=== PATIENT | male | born 1940 | race Caucasian/White ===

== ENCOUNTER → 2016-03-09 | Outpatient (CLI) | payer MEDICARE ==
[2015-08-30 09:52] VITALS: BP 188/100
[~2016-03-09] MED LIST: AMLO5TAB2 PO; ASPI325T70 PO; ASPI81TA2 PO; ASPI81TA9 PO; ATROVENT HFA12.9 GM IH; CEFP200T PO; CLOP75TA PO; CRESTOR5 MG PO; DILT240C2 PO; DRON400T PO; FLEC100T PO; FLUT100D INH; FURO20TA3 PO; Hydrochlorothiazide PO; METO100T11 PO; METO25TA4 PO; PANT40TA5 PO; POTA20TA4 PO; PRED20TA PO; ROPI1TAB2 PO; SENN-6 PO; WARF1TAB7 PO; WARF2TAB PO; WARF3TAB7 PO; WARF4TAB7 PO; WARF5TAB PO; WARF6TAB PO; WARF7.5T PO; [UNRECOGNIZED DRUG - OTHER] PO; protandim
--- NOTE | 2016-03-09 10:48 | KCIC ---
PROCEDURE Two-view chest. HISTORY Cough x2 weeks. COMPARISON CT chest without contrast April 18, 2013. FINDINGS Left chest dual chamber ICD. Median sternotomy wires. The cardiomediastinal silhouette is normal. Mild atelectasis or scarring or infiltrate in the left lower lobe. Lungs are otherwise clear. No pleural effusion or pneumothorax. No acute bone abnormality. IMPRESSION Mild atelectasis or scarring or infiltrate in the left lower lobe. Electronically signed by: Sonu Martin MD (Mar 09, 2016 10:47:03)
== END | disposition home or self-care (01) ==
LOC: KCIC 10:24
PROVIDERS: ATTEND Internal Medicine
DX: R05 Cough (principal); J98.11 Atelectasis; R91.8 Other nonspecific abnormal finding of lung field
CPT/HCPCS: 71020

== ENCOUNTER → 2016-06-27 | Outpatient (CLI) | payer BC, MEDICARE ==
[2015-08-30 09:52] VITALS: BP 188/100
[~2016-06-27] MED LIST changes: +WARF-78 PO; -WARF5TAB PO; -WARF6TAB PO; +WARF6TAB49 PO; -WARF7.5T PO; +WARF7.5T48 PO
--- NOTE | 2016-06-27 14:50 | KCIC ---
PROCEDURE Two-view chest HISTORY Right lung base crackles. Cough. COMPARISON March 09, 2016. FINDINGS Cardiomediastinal silhouette is stable. Pacer/defibrillator is again identified. Small 1 cm nodular opacity overlying the right lung base, possibly a nipple shadow. No focal airspace consolidation. Mild markings in the left lung base unchanged from prior study, likely scarring or atelectasis. No evidence of pleural effusion. Mild air trapping compatible with emphysema. No evidence of pleural effusion. No evidence of pneumothorax. Acromioclavicular joint hypertrophic osteoarthritis. IMPRESSION 1. Small 1 cm nodule at the right lung base. This could represent a nipple shadow. Recommend follow-up chest x-ray with nipple marker. 2. No focal airspace consolidation. Electronically signed by: Douglas Farias MD (June 27, 2016 14:49:10)
== END | disposition home or self-care (01) ==
LOC: KCIC 14:04
PROVIDERS: ATTEND Internal Medicine
DX: R05 Cough (principal); R09.89 Other specified symptoms and signs involving the circulatory and respiratory systems
CPT/HCPCS: 71020

== ENCOUNTER → 2017-06-04 | Outpatient (CLI) | payer BC | END | disposition home or self-care (01) | LOC: KCIC DEXA 08:46 | DX: M85.88 Other specified disorders of bone density and structure, other site (principal); Z79.52 Long term (current) use of systemic steroids | CPT/HCPCS: 77080 ==

== ENCOUNTER 2018-10-09 07:10 | Emergency (ER) | payer BC ==
[~2018-10-09] VITALS: Ht 175.3 cm; Wt 81.6 kg
[~2018-10-09 07:10] MED LIST changes: +AMLO5TAB10 PO; -AMLO5TAB2 PO; +ASPI-612 PO; +ASPI-630 PO; -ASPI81TA2 PO; -ASPI81TA9 PO; +METO-247 PO; -METO100T11 PO; -PANT40TA5 PO; +PANT40TA77 PO; -SENN-6 PO; +SENN-82 PO; +WARF1TAB69 PO; -WARF1TAB7 PO; +WARF3TAB50 PO; -WARF3TAB7 PO; +WARF4TAB64 PO; -WARF4TAB7 PO
--- NOTE | 2018-10-09 07:56 | PHYS DOC ---
Past Medical History Past Medical History: A-Fib, CAD, Diverticulitis, Hypertension, CT, Other Additional Past Medical Histor: Factor 5; Restless leg syndrome; pacemaker defib Past Surgical History: Coronary Bypass Surgery, Knee Replacement, Other Additional Past Surgical Histo: hernia; back, right shoulder rotator cuff; pacemaker defib Alcohol Use: Occasionally Drug Use: None Adult General Chief Complaint Chief Complaint: CHEST PAIN HPI HPI Patient is a 78-year-old male, with a past history including coronary artery disease status post bypass and subsequent PCI, atrial fibrillation on warfarin, who presents to the emergency department for evaluation. The patient states that for the past 10 days or so, he has had some discomfort in his left shoulder/back area, worse with movement of his left arm. He states that this morning he developed 2 seconds of a sharp discomfort in his left upper chest, overlying his pacemaker generator site, and has had some mild residual soreness at that site since that time. He denies any exertional chest discomfort, shortness of breath, or diaphoresis. With his prior cardiac events, he did not have any chest pain, but did have shortness of breath and diaphoresis. All of the symptoms are reproduced with movement as well as palpation of the affected areas. There are no alleviating factors to his symptoms. He has not had any fevers or chills, numbness, or weakness, and denies any recent trauma or injuries. Patient states that his INR was 3.1 last week, so he skipped a dose of Coumadin, and has readjusted his dose for the past few days . Review of Systems Review of Systems Constitutional: Denies fever or chills [] Eyes: Denies change in visual acuity, redness, or eye pain [] HENT: Denies nasal congestion or sore throat [] Respiratory: Denies cough or shortness of breath [] Cardiovascular: No additional information not addressed in HPI [] GI: Denies abdominal pain, nausea, vomiting, bloody stools or diarrhea [] : Denies dysuria or hematuria [] Musculoskeletal: Denies back pain or joint pain , except as noted in the history of present illness[] Integument: Denies rash or skin lesions [] Neurologic: Denies headache, focal weakness or sensory changes [] Endocrine: Denies polyuria or polydipsia [] All other systems were reviewed and found to be within normal limits, except as documented in this note. Current Medications Current Medications Current Medications Medications (Trade) Dose Ordered Sig/Alex Start Time Stop Time Status Last Admin Dose Admin Aspirin (Children'S Aspirin) 162 mg 1X ONCE 10/09/18 08:15 10/09/18 08:16 DC 10/09/18 08:26 162 MG Morphine Sulfate (Morphine Sulfate) 4 mg PRN Q15MIN PRN 10/09/18 08:15 10/10/18 08:14 10/09/18 08:26 4 MG Allergies Allergies Allergies Coded Allergies Type Severity Reaction Last Updated Verified albuterol Allergy Severe 02/18/15 Yes ticagrelor Allergy Severe SHORTNESS OF AIR 02/18/15 Yes Sulfa (Sulfonamide Antibiotics) Allergy Intermediate 01/02/15 Yes atorvastatin Allergy Intermediate 01/02/15 Yes naproxen Allergy Intermediate 01/02/15 Yes pravastatin Allergy Intermediate 01/02/15 Yes quinapril Allergy Intermediate 01/02/15 Yes quinapril HCl Allergy Intermediate 01/02/15 Yes ramipril Allergy Intermediate 01/02/15 Yes sulindac Allergy Intermediate 01/02/15 Yes telmisartan Allergy Intermediate 01/02/15 Yes testosterone Allergy Intermediate 01/02/15 Yes Physical Exam Physical Exam PHYSICAL EXAM: CONSTITUTIONAL: Well developed, well nourished HEAD: normocephalic, atraumatic EENT: PERRL, EOMI. Conjunctivae normal color, sclerae non-icteric; moist mucous membranes. NECK: Supple, non-tender; no meningismus. LUNGS: Lungs CTA, breathing even and unlabored. Normal air movement. HEART: Regular rate and rhythm, no murmur CHEST: No deformity; pacemaker generator site is palpable, there is mild tenderness to palpation of the soft tissues in this region, without focal tenderness at the generator site. ABDOMEN: The abdomen is soft, and non-tender, no masses or bruits. EXTREM: Normal ROM; no deformity, no calf tenderness. Normal pulses palpable in all extremities. There is trace pedal edema. There is tenderness to palpation to the anterior aspect of the left upper chest wall, just inferior and medial to the shoulder joint, as well as the posterior soft tissues of the left shoulder, which reproduces the patient's pain. SKIN: No rash; no diaphoresis NEURO: Alert; normal speech and cognition; CN's grossly intact; strength grossly intact without focal deficit. BACK: No CVA TTP. Current Patient Data Vital Signs Vital Signs Date Time Temp Pulse Resp B/P (MAP) Pulse Ox O2 Delivery O2 Flow Rate FiO2 10/09/18 08:56 18 96 Room Air 10/09/18 07:19 98.5 60 148/68 (94) 98.5 Lab Values Laboratory Tests Test 10/09/18 07:42 White Blood Count 5.3 x10^3/uL (4.0-11.0) Red Blood Count 4.77 x10^6/uL (4.30-5.70) Hemoglobin 16.1 g/dL (13.0-17.5) Hematocrit 47.0 % (39.0-53.0) Mean Corpuscular Volume 99 fL (79-100) Mean Corpuscular Hemoglobin 34 pg (25-35) Mean Corpuscular Hemoglobin Concent 34 g/dL (31-37) Red Cell Distribution Width 14.1 % (11.5-14.5) Platelet Count 154 x10^3/uL (140-400) Neutrophils (%) (Auto) 60 % (31-73) Lymphocytes (%) (Auto) 23 % (24-48) L Monocytes (%) (Auto) 14 % (0-9) H Eosinophils (%) (Auto) 3 % (0-3) Basophils (%) (Auto) 1 % (0-3) Neutrophils # (Auto) 3.2 x10^3/uL (1.8-7.7) Lymphocytes # (Auto) 1.2 x10^3/uL (1.0-4.8) Monocytes # (Auto) 0.7 x10^3/uL (0.0-1.1) Eosinophils # (Auto) 0.1 x10^3/uL (0.0-0.7) Basophils # (Auto) 0.1 x10^3/uL (0.0-0.2) Prothrombin Time 18.3 SEC (11.7-14.0) H Prothrombin Time INR 1.6 (0.8-1.1) H Sodium Level 140 mmol/L (136-145) Potassium Level 3.6 mmol/L (3.5-5.1) Chloride Level 105 mmol/L (98-107) Carbon Dioxide Level 27 mmol/L (21-32) Anion Gap 8 (6-14) Blood Urea Nitrogen 19 mg/dL (8-26) Creatinine 0.8 mg/dL (0.7-1.3) Estimated GFR (Cockcroft-Gault) 94.0 BUN/Creatinine Ratio 24 (6-20) H Glucose Level 133 mg/dL (70-99) H Calcium Level 8.8 mg/dL (8.5-10.1) Magnesium Level 2.2 mg/dL (1.8-2.4) Total Bilirubin 0.9 mg/dL (0.2-1.0) Aspartate Amino Transferase (AST) 27 U/L (15-37) Alanine Aminotransferase (ALT) 22 U/L (16-63) Alkaline Phosphatase 73 U/L (46-116) Troponin I Quantitative 0.039 ng/mL (0.000-0.055) NA-Ihr-Z-Type Natriuretic Peptide 566 pg/mL (0-449) H Total Protein 6.9 g/dL (6.4-8.2) Albumin 3.0 g/dL (3.4-5.0) L Albumin/Globulin Ratio 0.8 (1.0-1.7) L Laboratory Tests 10/09/18 07:42 Laboratory Tests 10/09/18 07:42 EKG EKG Normal sinus rhythm at a rate of 73 bpm with frequent PVCs, left axis deviation, left bundle branch block pattern, there are no acute ischemic changes, the EKG does not appear significantly different compared to patient's prior EKG.,[] Radiology/Procedures Radiology/Procedures [PROCEDURE: PORTABLE CHEST 1V PORTABLE CHEST 1V History: Left chest pain. Comparison: June 27, 2016 Findings: Left-sided pacemaker, unchanged. Prior median sternotomy. Elevation of the right hemidiaphragm, unchanged. Left glenohumeral and acromioclavicular DJD. Small left pleural effusion. Left basilar opacity. Portable technique accentuates cardiac size. Faint opacity within the right mid lung measures 3.2 x 1.6 cm. low lung volumes. Impression: 1. Small left pleural effusion. 2. Left basilar opacity, may represent atelectasis or consolidation. 3. Faint right midlung opacity, may represent summation artifact although consolidation or mass is possible. Recommend PA and lateral views of the chest to further assess. ] PROCEDURE: CHEST PA & LATERAL CHEST PA LATERAL History: Abnormal chest x-ray. Left chest pain. Comparison: September. Findings: Faint right mid lung opacity on previous chest x-ray represents summation artifact. Patchy left basilar opacity, most likely subsegmental atelectasis. No pleural effusion. Stable left sided pacemaker. Prior median sternotomy. Right acromioclavicular DJD. Impression: 1. Patchy left basilar opacity, most likely subsegmental atelectasis, similar compared to 2017. No pleural effusion. 2. Previously seen faint right midlung opacity is not identified and represented summation artifact. Course & Med Decision Making Course & Med Decision Making Pertinent Labs and Imaging studies reviewed. (See chart for details) [] 9:50 AM: The patient's condition remains stable. He is feeling better at this time. I had an extensive discussion with the patient about the limitations of ER cardiac evaluation in definitively ruling out acute coronary syndrome. We discussed limitation of the ER evaluation and a singe ED troponin in r/o AMI, and the risks involved in missed diagnosis of acute coronary syndrome including or permanent debility. I recommended overnight observation for further formal cardiac evaluation to rule out acute coronary syndrome. After expressing understanding of the limitations of ER cardiac evaluation, as well as the risks of missed diagnosis, the patient declined further cardiac evaluation at this time. The patient was mentally competent, and given opportunity to ask questions about the diagnosis and recommended plan of care. I stressed the importance of outpatient follow-up, and returning to the emergency department for new or worsening symptoms, or if the patient is agreeable to undergo further cardiac evaluation. Patient states Tylenol is adequate for pain control at home for him. Dragon Disclaimer Dragon Disclaimer This electronic medical record was generated, in whole or in part, using a voice recognition dictation system. Departure Departure Impression: Primary Impression: Left shoulder pain Additional Impression: Atypical chest pain Disposition: HOME, SELF-CARE Condition: STABLE Referrals: DEBBIE KNOX MD (PCP) IRAIDA GUZMAN MD Patient Instructions: Chest Pain (Nonspecific), Chest Wall Pain, Shoulder Pain Problem Qualifiers CHARLES CATALAN MD Oct 09, 2018 07:56
[2018-10-09 08:00] LABS: BASO # 0.1 x10^3/uL (0.0-0.2); BASO % 1 % (0-3); EOS # 0.1 x10^3/uL (0.0-0.7); EOS % 3 % (0-3); HEMOGLOBIN 16.1 g/dL (13.0-17.5); LYMPH # 1.2 x10^3/uL (1.0-4.8); LYMPH % 23 % (24-48); MEAN CORPUSCULAR HEMOGLOBIN 34 pg (25-35); MEAN CORPUSCULAR HGB CONC 34 g/dL (31-37); MEAN CORPUSCULAR VOLUME 99 fL (79-100); MONO # 0.7 x10^3/uL (0.0-1.1); MONO % 14 % (0-9); NEUT # 3.2 x10^3/uL (1.8-7.7); NEUT % 60 % (31-73); PLATELET COUNT 154 x10^3/uL (140-400); RED BLOOD COUNT 4.77 x10^6/uL (4.30-5.70); RED CELL DISTRIBUTION WIDTH 14.1 % (11.5-14.5); WHITE BLOOD COUNT 5.3 x10^3/uL (4.0-11.0)
[2018-10-09 08:07] LABS: PROTHROMBIN TIME PATIENT 18.3 SEC (11.7-14.0)
[2018-10-09 08:09] LABS: CALCIUM 8.8 mg/dL (8.5-10.1); CREATININE 0.8 mg/dL (0.7-1.3); POTASSIUM 3.6 mmol/L (3.5-5.1)
--- NOTE | 2018-10-09 08:11 | RAD ---
PORTABLE CHEST 1V History: Left chest pain. Comparison: June 27, 2016 Findings: Left-sided pacemaker, unchanged. Prior median sternotomy. Elevation of the right hemidiaphragm, unchanged. Left glenohumeral and acromioclavicular DJD. Small left pleural effusion. Left basilar opacity. Portable technique accentuates cardiac size. Faint opacity within the right mid lung measures 3.2 x 1.6 cm. low lung volumes. Impression: 1. Small left pleural effusion. 2. Left basilar opacity, may represent atelectasis or consolidation. 3. Faint right midlung opacity, may represent summation artifact although consolidation or mass is possible. Recommend PA and lateral views of the chest to further assess. Electronically signed by: Fabiano Davis DO (10/09/2018 8:08 AM) [id number]
[2018-10-09 08:14] LABS: ALBUMIN/GLOBULIN RATIO 0.8 (1.0-1.7); MAGNESIUM 2.2 mg/dL (1.8-2.4); TOTAL BILIRUBIN 0.9 mg/dL (0.2-1.0); TOTAL PROTEIN 6.9 g/dL (6.4-8.2)
[2018-10-09] MEDS ORDERED: MORPHINE SULFATE 4 MG/ML VIAL. IV/SQ PRN (08:15)
[2018-10-09] MEDS ORDERED: ASPIRIN CHEWABLE 81 MG TABLET. PO ONE (08:15)
--- NOTE | 2018-10-09 09:39 | RAD ---
CHEST PA LATERAL History: Abnormal chest x-ray. Left chest pain. Comparison: September. Findings: Faint right mid lung opacity on previous chest x-ray represents summation artifact. Patchy left basilar opacity, most likely subsegmental atelectasis. No pleural effusion. Stable left sided pacemaker. Prior median sternotomy. Right acromioclavicular DJD. Impression: 1. Patchy left basilar opacity, most likely subsegmental atelectasis, similar compared to 2017. No pleural effusion. 2. Previously seen faint right midlung opacity is not identified and represented summation artifact. Electronically signed by: Fabiano Davis DO (10/09/2018 9:37 AM) [id number]
[2018-10-09 10:00] VITALS: BP 138/77
--- NOTE | 2018-10-09 13:38 | EKG ---
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
== END 2018-10-09 10:20 | disposition home or self-care (01) ==
LOC: ER 07:10
DX: M25.512 Pain in left shoulder (principal); R07.89 Other chest pain; I48.91 Unspecified atrial fibrillation; I25.10 Atherosclerotic heart disease of native coronary artery without angina pectoris; I25.2 Old myocardial infarction; I10 Essential (primary) hypertension; Z95.5 Presence of coronary angioplasty implant and graft; Z96.659 Presence of unspecified artificial knee joint; Z95.0 Presence of cardiac pacemaker; Z79.82 Long term (current) use of aspirin; Z88.2 Allergy status to sulfonamides; Z88.1 Allergy status to other antibiotic agents; Z88.8 Allergy status to other drugs, medicaments and biological substances
CPT/HCPCS: 36415; 71045; 71046; 80053; 83735; 83880; 84484; 85025; 85610; 93005; 96374; 99285; J2270

== ENCOUNTER → 2019-04-18 | Outpatient (CLI) | payer BC ==
[~2019-04-18] MED LIST changes: -ROPI1TAB2 PO; +ROPI1TAB4 PO
--- NOTE | 2019-04-21 11:29 | RESP ---
DATE OF SERVICE: 04/18/2019 The patient underwent full pulmonary function testing on 04/18/2019, FEV1 to FVC ratio was 63%, FEV1 was 1.64 liters, FVC was 2.58 liters. The total lung capacity was elevated. Residual volume was elevated. Diffusion capacity was increased. IMPRESSION: 1. Moderate to severe airflow limitation. 2. Elevated diffusion capacity. LA ANGELO MD DR: ONEL/ganga JOB#: [id number] / [id number]
== END ==
LOC: PF 09:54
PROVIDERS: ATTEND Nurse Practitioner
DX: I48.11 Longstanding persistent atrial fibrillation (principal)
CPT/HCPCS: 94010; 94726; 94729

== ENCOUNTER 2019-10-10 15:01 | Inpatient (IN) | payer BC ==
[~2019-10-10] VITALS: Ht 177.8 cm; Wt 138.3 kg
[~2019-10-10 15:01] MED LIST changes: -ASPI-612 PO; +ASPI-886 PO; -WARF-78 PO; +WARF5TAB2 PO
[2019-10-10 16:22] VITALS: BP 131/68
[2019-10-10] MEDS ORDERED: ACETAMINOPHEN 325 MG TABLET. PO PRN (17:15)
[2019-10-10 19:00] VITALS: BP 134/78
[2019-10-10 20:23] LABS: BASO # 0.1 x10^3/uL (0.0-0.2); BASO % 1 % (0-3); EOS # 0.1 x10^3/uL (0.0-0.7); EOS % 1 % (0-3); HEMATOCRIT 43.7 % (39.0-53.0); HEMOGLOBIN 14.8 g/dL (13.0-17.5); LYMPH # 1.3 x10^3/uL (1.0-4.8); LYMPH % 18 % (24-48); MEAN CORPUSCULAR HEMOGLOBIN 34 pg (25-35); MEAN CORPUSCULAR HGB CONC 34 g/dL (31-37); MEAN CORPUSCULAR VOLUME 101 fL (79-100); MONO # 1.4 x10^3/uL (0.0-1.1); MONO % 19 % (0-9); NEUT # 4.5 x10^3/uL (1.8-7.7); NEUT % 62 % (31-73); PLATELET COUNT 125 x10^3/uL (140-400); RED BLOOD COUNT 4.34 x10^6/uL (4.30-5.70); RED CELL DISTRIBUTION WIDTH 15.1 % (11.5-14.5); WHITE BLOOD COUNT 7.2 x10^3/uL (4.0-11.0)
[2019-10-10 20:28] LABS: PROTHROMBIN TIME PATIENT 20.1 SEC (11.7-14.0)
[2019-10-10 20:38] LABS: % LYMPHS 17 % (24-48); % MONOS 13 % (0-10); % SEGS 70 % (35-66)
[2019-10-10 20:39] LABS: PLT ESTIMATE DECREASED (ADEQUATE)
[2019-10-10 20:54] LABS: ALBUMIN 2.7 g/dL (3.4-5.0); ALBUMIN/GLOBULIN RATIO 0.7 (1.0-1.7); CALCIUM 8.6 mg/dL (8.5-10.1); GFR 72.5; TOTAL BILIRUBIN 0.6 mg/dL (0.2-1.0); TOTAL PROTEIN 6.7 g/dL (6.4-8.2)
[2019-10-10] MEDS ORDERED: WARFARIN 5 MG TABLET. PO ONE (21:00)
[2019-10-10] MEDS ORDERED: FURO40TA4 PO (21:49)
[2019-10-10] MEDS ORDERED: CHOL500050 PO (21:49)
[2019-10-10] MEDS ORDERED: FEXO180T81 PO (21:49)
[2019-10-10] MEDS ORDERED: POTA20TA4 PO (21:49)
[2019-10-10] MEDS ORDERED: WARF4TAB64 PO (21:49)
[2019-10-10] MEDS: rOPINIRole 1 MG TABLET. PO SCH (21:56)
[2019-10-10] MEDS: ceFAZolin SODIUM IV Push 1 GM VIAL. IVP SCH (21:56)
[2019-10-10] MEDS: CARVEDILOL 6.25 MG TABLET. PO SCH (21:56)
--- NOTE | 2019-10-10 22:28 | EKG ---
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
[2019-10-10] MEDS ORDERED: SENN8.6T11 PO (22:45)
[2019-10-10] MEDS ORDERED: CARV6.2511 PO (22:45)
[2019-10-10] MEDS ORDERED: PANT40TA77 PO (22:45)
[2019-10-10] MEDS ORDERED: AMIO400T5 PO (22:45)
[2019-10-10 23:00] VITALS: BP 138/75
[2019-10-11 03:00] VITALS: BP 130/78
[2019-10-11 05:16] LABS: PROTHROMBIN TIME PATIENT 19.4 SEC (11.7-14.0)
[2019-10-11 05:33] LABS: CALCIUM 8.6 mg/dL (8.5-10.1); CREATININE 1.1 mg/dL (0.7-1.3); GFR 64.9; POTASSIUM 3.9 mmol/L (3.5-5.1)
[2019-10-11] MEDS: ceFAZolin SODIUM IV Push 1 GM VIAL. IVP SCH (06:25)
[2019-10-11 07:00] VITALS: BP 141/93
--- NOTE | 2019-10-11 07:08 | RAD ---
EXAM: Right lower extremity venous Doppler. HISTORY: Right lower extremity pain/swelling. COMPARISON: None. FINDINGS: Grayscale and Doppler analysis of the right lower extremity deep venous system was performed with graded compression and augmentation. The common femoral, greater saphenous, superficial femoral, popliteal and calf veins were assessed. There is no evidence of deep venous thrombosis. Subcutaneous edema is noted. The right peroneal veins were not well visualized secondary to edema. IMPRESSION: 1. No evidence of deep venous thrombosis. Electronically signed by: Hayley Castanon MD (10/11/2019 7:05 AM) [id number]
--- NOTE | 2019-10-11 07:56 | PDOC ---
Infectious Disease Note Vital Sign Vital Signs Vital Signs Date Time Temp Pulse Resp B/P (MAP) Pulse Ox O2 Delivery O2 Flow Rate FiO2 10/11/19 03:00 98.4 68 22 130/78 (95) 94 Room Air 98.4 Labs Lab Laboratory Tests Test 10/10/19 20:00 10/11/19 04:20 White Blood Count 7.2 x10^3/uL (4.0-11.0) Red Blood Count 4.34 x10^6/uL (4.30-5.70) Hemoglobin 14.8 g/dL (13.0-17.5) Hematocrit 43.7 % (39.0-53.0) Mean Corpuscular Volume 101 fL (79-100) Mean Corpuscular Hemoglobin 34 pg (25-35) Mean Corpuscular Hemoglobin Concent 34 g/dL (31-37) Red Cell Distribution Width 15.1 % (11.5-14.5) Platelet Count 125 x10^3/uL (140-400) Neutrophils (%) (Auto) 62 % (31-73) Lymphocytes (%) (Auto) 18 % (24-48) Monocytes (%) (Auto) 19 % (0-9) Eosinophils (%) (Auto) 1 % (0-3) Basophils (%) (Auto) 1 % (0-3) Neutrophils # (Auto) 4.5 x10^3/uL (1.8-7.7) Lymphocytes # (Auto) 1.3 x10^3/uL (1.0-4.8) Monocytes # (Auto) 1.4 x10^3/uL (0.0-1.1) Eosinophils # (Auto) 0.1 x10^3/uL (0.0-0.7) Basophils # (Auto) 0.1 x10^3/uL (0.0-0.2) Segmented Neutrophils % 70 % (35-66) Lymphocytes % 17 % (24-48) Monocytes % 13 % (0-10) Platelet Estimate Decreased (ADEQUATE) Prothrombin Time 20.1 SEC (11.7-14.0) 19.4 SEC (11.7-14.0) Prothromb Time International Ratio 1.7 (0.8-1.1) 1.7 (0.8-1.1) Sodium Level 138 mmol/L (136-145) 138 mmol/L (136-145) Potassium Level 4.0 mmol/L (3.5-5.1) 3.9 mmol/L (3.5-5.1) Chloride Level 105 mmol/L (98-107) 104 mmol/L (98-107) Carbon Dioxide Level 27 mmol/L (21-32) 24 mmol/L (21-32) Anion Gap 6 (6-14) 10 (6-14) Blood Urea Nitrogen 19 mg/dL (8-26) 19 mg/dL (8-26) Creatinine 1.0 mg/dL (0.7-1.3) 1.1 mg/dL (0.7-1.3) Estimated GFR (Cockcroft-Gault) 72.5 64.9 BUN/Creatinine Ratio 19 (6-20) Glucose Level 116 mg/dL (70-99) 141 mg/dL (70-99) Calcium Level 8.6 mg/dL (8.5-10.1) 8.6 mg/dL (8.5-10.1) Magnesium Level 2.0 mg/dL (1.8-2.4) Total Bilirubin 0.6 mg/dL (0.2-1.0) Aspartate Amino Transf (AST/SGOT) 24 U/L (15-37) Alanine Aminotransferase (ALT/SGPT) 24 U/L (16-63) Alkaline Phosphatase 58 U/L (46-116) Total Protein 6.7 g/dL (6.4-8.2) Albumin 2.7 g/dL (3.4-5.0) Albumin/Globulin Ratio 0.7 (1.0-1.7) Objective Assessment Cellulitits RLE - from scratch on metal bracket - states up to date on tetanus Sulfa allergy Afib Lymphedema Cat expsoures Plan Plan of Care Change to Cefepime and po Zyvox F/u labs and cults Elevation Thank you # [id number] KRISTEN ANGULO MD Oct 11, 2019 07:56
[2019-10-11] MEDS ORDERED: FUROSEMIDE 40 MG/4 ML VIAL. IVP SCH (09:00)
[2019-10-11] MEDS: ASPIRIN CHEWABLE 81 MG TABLET. PO SCH (09:06)
[2019-10-11] MEDS: CARVEDILOL 6.25 MG TABLET. PO SCH ×2 (09:07→17:16)
[2019-10-11] MEDS: LINEZOLID 600 MG TABLET PO SCH ×2 (09:07→21:10)
[2019-10-11] MEDS: AMIODARONE HCL 200 MG TABLET. PO SCH (09:07)
[2019-10-11] MEDS: CEFEPIME HCL IV Push 1 GM VIAL. IVP SCH ×3 (09:08→21:10)
--- NOTE | 2019-10-11 09:51 | RAD ---
CHEST PA LATERAL INDICATION: assess lung,cardiac. soa COMPARISON STUDY: 10/09/2018. FINDINGS: Life Support Devices: Left pectoral ICD/pacemaker. Lungs: Normal lung volume. Stable left basilar opacities. No new consolidation. Normal pulmonary vasculature. Pleura: No pleural effusion or pneumothorax. Heart and Mediastinum: Stable cardiomediastinal silhouette and great vessels. IMPRESSION: Stable left basilar opacities. No new consolidation. Electronically signed by: Jeremias Wong MD (10/11/2019 9:48 AM) [id number]
[2019-10-11 11:00] VITALS: BP 106/70
--- NOTE | 2019-10-11 12:10 | PDOC ---
Provider Note Provider Note history and physical dictated # [id number] Justicifation of Admission Dx: Justifications for Admission: Justification of Admission Dx: Yes Cellulitis: Cellulitis DEBBIE KNOX MD Oct 11, 2019 12:10
--- NOTE | 2019-10-11 12:45 | HP ---
ADMIT DATE: 10/10/2019 LOCATION: He is in room #502. HISTORY OF PRESENT ILLNESS: The patient is a 79-year-old white male who has a history of paroxysmal atrial fibrillation, on Coumadin and also has factor V Leiden mutation with history of coronary artery disease and hypertension, was admitted to [facility] from my office on 10/10/2019 with cellulitis in the right leg. The patient was moving on his wheelchair (scraped his right pretibial area) following day developed some redness and then he developed also fever and chills. He was seen in the office and had 2+ edema in his right leg with extensive cellulitis of the right pretibial area and he does have a previous history of a right total knee arthroplasty. He was therefore admitted for hospitalization for IV antibiotics and IV diuretics. ALLERGIES AND INTOLERANCES: INCLUDE SULFA, ALBUTEROL, ATORVASTATIN, NAPROXEN, PRAVASTATIN, QUINAPRIL, RAMIPRIL, SULINDAC, TELMISARTAN TESTOSTERONE, AND TICAGRELOR. MEDICATIONS: Prior to admission include: He is on furosemide 40 mg p.o. daily, amiodarone 400 mg every day, aspirin 81 mg every day, carvedilol 6.25 mg b.i.d., potassium chloride 20 mEq every day, Requip 2 mg at bedtime, and Coumadin 4.5 mg every day. PAST MEDICAL HISTORY: Significant for obstructive sleep apnea, periodic limb movement disorder, paroxysmal atrial fibrillation, coronary artery disease, factor V Leiden mutation. Hypertension, osteoarthritis, hyperlipidemia, frequent. He has had premature ventricular contractions and ventricular trigeminy. Chronic diastolic congestive heart failure. Benign prostatic hypertrophy. He had a deep vein thrombosis in 2003, had a coronary angioplasty and stent x 2 to the LAD artery in 2013, coronary artery bypass graft surgery in 2011, lumbar laminectomy in 2010, right rotator cuff repair in 2009, right total knee arthroplasty in 2008, benign colon polypectomy in 2008, left inguinal hernia repair in 1998, right knee arthrotomy, cataract extraction, reflux esophagitis. He also had a coronary angioplasty and stent in 2015. He has an AICD/pacemaker in 05/2015, had a radiofrequency ablation for premature ventricular contractions in 05/2016. SOCIAL HISTORY: He does not drink alcohol nor does he smoke cigarettes. 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 FAMILY HISTORY: Noncontributory. REVIEW OF SYSTEMS: GENERAL: He has had fever and chills. CARDIOVASCULAR: No chest pain. PULMONARY: No cough or shortness of breath. GASTROINTESTINAL: No diarrhea. ENDOCRINE: No diabetes mellitus. SKIN: He has got a cellulitis in right leg and the rest of the systems reviewed are negative except as stated in history of present illness. PHYSICAL EXAMINATION: VITAL SIGNS: Temperature is 97.5 degrees, heart rate is 60, respiratory rate 16, blood pressure 141/93. HEENT: Gaze is conjugate. Mouth is symmetrical. NECK: There is no cervical lymphadenopathy or thyroid enlargement. HEART: Reveals an S1, S2. There is no S3 or murmur. LUNGS: Revealed bilateral rhonchi in the bases. ABDOMEN: Obese and soft, nontender. EXTREMITIES: Lower extremities got 2+ edema in the right leg, 1+ edema in the left leg. He has got erythema in the pretibial area of the leg from the ankle all the way up to little bit below the knee. He has got an abrasion in the pretibial area of the right side. NEUROLOGIC: Revealed no focal weakness of extremities or facial asymmetry. LABORATORY DATA: Review of his laboratory tests: White count 7.2, hemoglobin 14.8, platelet count 125,000. He had a 62 polys and 18 lymphocytes. INR is 1.7 yesterday and today, sodium 138, potassium 3.9, chloride 104, total CO2 of 24, BUN 19, creatinine 1.1, blood sugar was 116 last night and 141 this morning. Liver function tests were normal. Albumin was 2.7. He had a chest x-ray, which showed a stable left basilar opacity with no new consolidation. No pleural effusion or pneumothorax was seen. He had a venous Doppler of his right leg, which showed no evidence of a deep vein thrombosis. He had an EKG. Electrocardiogram showed looks like atrial fibrillation with premature ventricular contractions noted. ASSESSMENT: 1. Cellulitis, right leg. 2. Abrasion, right pretibial area. 3. Chronic venous insufficiency of the legs. 4. Paroxysmal atrial fibrillation, on Coumadin. 5. Factor V Leiden mutation, on Coumadin. 6. Coronary artery disease with previous angioplasties and stents. 7. Hypertension. 8. Obstructive sleep apnea. 9. History of a right total knee arthroplasty. PLAN: At this time is consult Dr. Sosa seen the patient. He was started on IV cefazolin and Dr. Sosa changed it to IV cefepime and also Zyvox. He was started on IV Lasix and he has had some urine output, actually I do not see any urine output recorded so that the nurses recorded. We will put him on some Bumex 1 mg IV and started on IV Lasix and see if that works better for his peripheral edema. We will increase his potassium chloride also. Actually, he is not getting any potassium chloride that I can see here, so will be ordering potassium chloride 20 mEq daily. We will also increase his Coumadin to 5 mg every day. DEBBIE KNOX MD DR: VEDA/ganga JOB#: [id number] / [id number]
[2019-10-11] MEDS: POTASSIUM CHLORIDE 20 MEQ TABLET.ER. PO SCH ×2 (14:06→21:10)
[2019-10-11] MEDS: BUMETANIDE 1 MG/4 ML VIAL. IV SCH (14:07)
[2019-10-11 15:00] VITALS: BP 133/92
[2019-10-11] MEDS: WARFARIN 5 MG TABLET. PO SCH (17:16)
[2019-10-11 19:00] VITALS: BP 140/86
[2019-10-11] MEDS: LACTOBACILLUS RHAMNOSUS GG 1 CAPSULE. PO SCH (21:10)
[2019-10-11] MEDS: rOPINIRole 1 MG TABLET. PO SCH (21:11)
--- NOTE | 2019-10-11 21:41 | CONS ---
DATE OF CONSULTATION: 10/11/2019 LOCATION: The patient's room is 502. REQUESTING PHYSICIAN: Dr. Palmer. REASON FOR CONSULTATION: Cellulitis. HISTORY OF PRESENT ILLNESS: The patient is a pleasant 79-year-old gentleman with a history of atrial fibrillation and lymphedema. He states this past Sunday he was adjusting his riding chair and scraped his right lower extremity at a bracket. He had very superficially washed it out with soap and water and put some antibiotic ointment on it. However in the next couple of days, it began to turn more red and developed some heat. He denies any fevers, but he did have some chills. No sweats. He denies any headache, sore throat, cough, nausea, vomiting, diarrhea, dysuria, frequency, or urgency and he presented to Dr. Palmer's office on the and was directly admitted and placed on cefazolin. Currently, he is sitting upright in bed and feeling somewhat better. Mother still remains red and swollen. PAST MEDICAL HISTORY: Positive for hypertension, hyperlipidemia, coronary artery disease, atrial fibrillation, factor V Leiden mutation, history of DVT, diverticulitis, hearing aids, and left upper extremity cellulitis. PAST SURGICAL HISTORY: Positive for coronary artery stents and right total knee arthroplasty. REVIEW OF SYSTEMS: Otherwise negative. ALLERGIES: LISTED SULFA, CANNOT REMEMBER WHAT HAPPENS WHEN HE TAKES IT, ATORVASTATIN, NAPROSYN, PRAVASTATIN, QUINAPRIL, RAMIPRIL, SULINDAC, TESTOSTERONE, AND TELMISARTAN ARE ALSO LISTED. REVIEW OF SYSTEMS: Otherwise negative. SOCIAL HISTORY: No tobacco, no alcohol. He is and retired. He has cats at home. FAMILY HISTORY: Noncontributory. CURRENT MEDICATIONS: Include cefazolin 1 g q.8 h., amiodarone, aspirin, Coreg, Lasix, Requip, and Coumadin. PHYSICAL EXAMINATION: VITAL SIGNS: He is afebrile, temperature 98.4, pulse 68, respirations 22, blood pressure 130/78, satting 94% on room air. CONSTITUTIONAL: He is very pleasant and cooperative. He is in no acute distress. HEENT: Pupils are equal and reactive. Normal conjunctivae. Oral cavity, pharynx clear. NECK: Supple. Good range of motion. LUNGS: Clear to auscultation bilaterally. HEART: S1 and S2. ABDOMEN: Morbidly obese, soft, no guarding or rebound. EXTREMITIES: Without clubbing or cyanosis. He has bilateral lymphedema changes, right greater than left. His right lower extremity has erythema from the upper tibial area down to the top of the ankle. He has a wound that is superficial on the anterior aspect, approximately 2-3 cm x 1 cm, it is clean, no purulence, has no erythema, tracked up to his groin. SKIN: Warm to touch. NEUROLOGIC: Nonfocal. PSYCHIATRIC: Affect is pleasant. LABORATORY DATA: White count is 17, hemoglobin of 14.8, platelets 125, neutrophils 62, lymphs were 18, creatinine today 1.1, glucose 141. He had normal liver function study tests. Ultrasound was negative for DVT. IMPRESSION: 1. Cellulitis, right lower extremity from the scratch of a metal bracket, he states he is up-to-date on his tetanus. 2. SULFA ALLERGY. 3. Atrial fibrillation. 4. Lymphedema. 5. Cat exposure. RECOMMENDATIONS: We will change to cefepime given the metal exposure. Add p.o. Zyvox. Discontinue the cefazolin. Follow up labs, cultures, and needs elevation. Thank you for asking us to participate in the patient's care. If you have any questions, please do not hesitate to contact me. KRISTEN ANGULO MD DR: LISSETTE/ganga JOB#: [id number] / [id number]
[2019-10-11 23:00] VITALS: BP 109/72
[2019-10-12 03:00] VITALS: BP 132/85
[2019-10-12] MEDS: CEFEPIME HCL IV Push 1 GM VIAL. IVP SCH ×3 (05:33→21:34)
[2019-10-12 06:09] LABS: PROTHROMBIN TIME PATIENT 21.8 SEC (11.7-14.0)
[2019-10-12 06:25] LABS: CALCIUM 8.7 mg/dL (8.5-10.1); GFR 72.5; POTASSIUM 3.9 mmol/L (3.5-5.1)
[2019-10-12 07:00] VITALS: BP 133/80
--- NOTE | 2019-10-12 07:44 | PDOC ---
Infectious Disease Note Subjective Subjective Ok but had some leg discomfort and burning in the night No F/c/s/N/v/SPA/Rash and gets to bathroom ok Constipated Vital Sign Vital Signs Vital Signs Date Time Temp Pulse Resp B/P (MAP) Pulse Ox O2 Delivery O2 Flow Rate FiO2 10/12/19 03:00 98.4 68 20 132/85 (101) 95 Room Air 98.4 Physical Exam PHYSICAL EXAM CONSTITUTIONAL: He is very pleasant and cooperative. He is in no acute distress. HEENT: Pupils are equal and reactive. Normal conjunctivae. Oral cavity, pharynx clear. NECK: Supple. Good range of motion. LUNGS: Clear to auscultation bilaterally. HEART: S1 and S2. ABDOMEN: Morbidly obese, soft, no guarding or rebound. EXTREMITIES: Without clubbing or cyanosis. He has bilateral lymphedema changes, right greater than left. His right lower extremity has erythema from the upper tibial area down to the top of the ankle stable/ trace warmth. He has a wound that is superficial on the anterior aspect, approximately 2-3 cm x 1 cm, it is clean, no purulence, has no erythema tracking up to his groin. SKIN: Warm to touch. NEUROLOGIC: Nonfocal. PSYCHIATRIC: Affect is pleasant Labs Lab Laboratory Tests Test 10/12/19 05:13 Prothrombin Time 21.8 SEC (11.7-14.0) Prothromb Time International Ratio 1.9 (0.8-1.1) Sodium Level 141 mmol/L (136-145) Potassium Level 3.9 mmol/L (3.5-5.1) Chloride Level 105 mmol/L (98-107) Carbon Dioxide Level 28 mmol/L (21-32) Anion Gap 8 (6-14) Blood Urea Nitrogen 21 mg/dL (8-26) Creatinine 1.0 mg/dL (0.7-1.3) Estimated GFR (Cockcroft-Gault) 72.5 Glucose Level 103 mg/dL (70-99) Calcium Level 8.7 mg/dL (8.5-10.1) Magnesium Level 2.1 mg/dL (1.8-2.4) Micro Microbiology 10/10/19 Blood Culture - Preliminary, Resulted NO GROWTH AFTER 1 DAY Objective Assessment Cellulitits RLE - from scratch on metal bracket - states up to date on tetanus Sulfa allergy Afib Lymphedema Cat expsoures Plan Plan of Care Cont Cefepime and po Zyvox F/u labs and cults Elevation KRISTEN ANGULO MD Oct 12, 2019 07:44
[2019-10-12] MEDS: POTASSIUM CHLORIDE 20 MEQ TABLET.ER. PO SCH ×2 (08:17→21:34)
[2019-10-12] MEDS: ASPIRIN CHEWABLE 81 MG TABLET. PO SCH (08:17)
[2019-10-12] MEDS: LACTOBACILLUS RHAMNOSUS GG 1 CAPSULE. PO SCH ×2 (08:17→21:34)
[2019-10-12] MEDS: CARVEDILOL 6.25 MG TABLET. PO SCH ×2 (08:18→17:16)
[2019-10-12] MEDS: AMIODARONE HCL 200 MG TABLET. PO SCH (08:18)
[2019-10-12] MEDS: LINEZOLID 600 MG TABLET PO SCH ×2 (08:18→21:34)
[2019-10-12] MEDS: BUMETANIDE 1 MG/4 ML VIAL. IV SCH ×2 (08:19→13:34)
[2019-10-12 10:43] VITALS: BP 113/81
--- NOTE | 2019-10-12 10:53 | PDOC ---
PROGRESS NOTES Date of Service DATE: 10/12/19 TIME: 10:50 Subjective Subjective notes urine frequency with iv bumex. he is not able to aim into urinal and is voiding in toilet and not being measured. receiving iv bumex bid. lab reviewed. blood cultures neg so far. inr 1.9. Objective Objective Vital Signs Date Time Temp Pulse Resp B/P (MAP) Pulse Ox O2 Delivery O2 Flow Rate FiO2 10/12/19 10:43 97.8 68 18 113/81 (92) 96 Room Air 97.8 Intake and Output 10/12/19 07:00 Intake Total 1820 ml Output Total 1500 ml Balance 320 ml Intake Oral 1820 ml Output Urine Total 1500 ml # Voids 2 Physical Exam Abdomen: Soft Heart: Regular rate, Normal S1, Normal S2 Extremities: Other (edema both feet and legs better) General: Alert HEENT: Atraumatic Lungs: Other (decreased breath sounds anteriorly) Neck: Supple Neuro: Normal speech Psych/Mental Status: Mental status NL Skin: Other (redeness pretibial area right leg and wound pretibial area) Assessment Assessment 1. Cellulitis, right leg. 2. Abrasion, right pretibial area. 3. Chronic venous insufficiency of the legs. 4. Paroxysmal atrial fibrillation, on Coumadin. 5. Factor V Leiden mutation, on Coumadin. 6. Coronary artery disease with previous angioplasties and stents. 7. Hypertension. 8. Obstructive sleep apnea. 9. History of a right total knee arthroplasty. Plan Plan of Care continue iv cefepime and zyvox continue iv bumex lab tomorrow continue coumadin Comment Review of Relevant I have reviewed the following items jackeline (where applicable) has been applied. Labs Laboratory Tests Test 10/10/19 20:00 10/11/19 04:20 10/12/19 05:13 White Blood Count 7.2 x10^3/uL (4.0-11.0) Red Blood Count 4.34 x10^6/uL (4.30-5.70) Hemoglobin 14.8 g/dL (13.0-17.5) Hematocrit 43.7 % (39.0-53.0) Mean Corpuscular Volume 101 fL (79-100) Mean Corpuscular Hemoglobin 34 pg (25-35) Mean Corpuscular Hemoglobin Concent 34 g/dL (31-37) Red Cell Distribution Width 15.1 % (11.5-14.5) Platelet Count 125 x10^3/uL (140-400) Neutrophils (%) (Auto) 62 % (31-73) Lymphocytes (%) (Auto) 18 % (24-48) Monocytes (%) (Auto) 19 % (0-9) Eosinophils (%) (Auto) 1 % (0-3) Basophils (%) (Auto) 1 % (0-3) Neutrophils # (Auto) 4.5 x10^3/uL (1.8-7.7) Lymphocytes # (Auto) 1.3 x10^3/uL (1.0-4.8) Monocytes # (Auto) 1.4 x10^3/uL (0.0-1.1) Eosinophils # (Auto) 0.1 x10^3/uL (0.0-0.7) Basophils # (Auto) 0.1 x10^3/uL (0.0-0.2) Segmented Neutrophils % 70 % (35-66) Lymphocytes % 17 % (24-48) Monocytes % 13 % (0-10) Platelet Estimate Decreased (ADEQUATE) Prothrombin Time 20.1 SEC (11.7-14.0) 19.4 SEC (11.7-14.0) 21.8 SEC (11.7-14.0) Prothromb Time International Ratio 1.7 (0.8-1.1) 1.7 (0.8-1.1) 1.9 (0.8-1.1) Sodium Level 138 mmol/L (136-145) 138 mmol/L (136-145) 141 mmol/L (136-145) Potassium Level 4.0 mmol/L (3.5-5.1) 3.9 mmol/L (3.5-5.1) 3.9 mmol/L (3.5-5.1) Chloride Level 105 mmol/L (98-107) 104 mmol/L (98-107) 105 mmol/L (98-107) Carbon Dioxide Level 27 mmol/L (21-32) 24 mmol/L (21-32) 28 mmol/L (21-32) Anion Gap 6 (6-14) 10 (6-14) 8 (6-14) Blood Urea Nitrogen 19 mg/dL (8-26) 19 mg/dL (8-26) 21 mg/dL (8-26) Creatinine 1.0 mg/dL (0.7-1.3) 1.1 mg/dL (0.7-1.3) 1.0 mg/dL (0.7-1.3) Estimated GFR (Cockcroft-Gault) 72.5 64.9 72.5 BUN/Creatinine Ratio 19 (6-20) Glucose Level 116 mg/dL (70-99) 141 mg/dL (70-99) 103 mg/dL (70-99) Calcium Level 8.6 mg/dL (8.5-10.1) 8.6 mg/dL (8.5-10.1) 8.7 mg/dL (8.5-10.1) Magnesium Level 2.0 mg/dL (1.8-2.4) 2.1 mg/dL (1.8-2.4) Total Bilirubin 0.6 mg/dL (0.2-1.0) Aspartate Amino Transf (AST/SGOT) 24 U/L (15-37) Alanine Aminotransferase (ALT/SGPT) 24 U/L (16-63) Alkaline Phosphatase 58 U/L (46-116) Total Protein 6.7 g/dL (6.4-8.2) Albumin 2.7 g/dL (3.4-5.0) Albumin/Globulin Ratio 0.7 (1.0-1.7) Laboratory Tests Test 10/12/19 05:13 Prothrombin Time 21.8 SEC (11.7-14.0) Prothromb Time International Ratio 1.9 (0.8-1.1) Sodium Level 141 mmol/L (136-145) Potassium Level 3.9 mmol/L (3.5-5.1) Chloride Level 105 mmol/L (98-107) Carbon Dioxide Level 28 mmol/L (21-32) Anion Gap 8 (6-14) Blood Urea Nitrogen 21 mg/dL (8-26) Creatinine 1.0 mg/dL (0.7-1.3) Estimated GFR (Cockcroft-Gault) 72.5 Glucose Level 103 mg/dL (70-99) Calcium Level 8.7 mg/dL (8.5-10.1) Magnesium Level 2.1 mg/dL (1.8-2.4) Microbiology 10/10/19 Blood Culture - Preliminary, Resulted NO GROWTH AFTER 1 DAY Medications Current Medications Cefazolin Sodium (Ancef) 1 gm Q8HRS IVP Last administered on 10/11/19 06:25; Start 10/10/19 at 22:00; Stop 10/11/19 at 07:51; Status DC Amiodarone HCl (Cordarone) 400 mg DAILY PO Last administered on 10/12/19 08:18; Start 10/11/19 at 09:00 Aspirin (Aspirin Chewable) 81 mg DAILYWBKFT PO Last administered on 10/12/19 08:17; Start 10/11/19 at 08:00 Carvedilol (Coreg) 6.25 mg BIDWMEALS PO Last administered on 10/12/19 08:18; Start 10/10/19 at 17:00 Furosemide (Lasix) 40 mg DAILY IVP Last administered on 10/11/19 09:08; Start 10/11/19 at 09:00; Stop 10/11/19 at 12:14; Status DC Acetaminophen (Tylenol) 650 mg PRN Q6HRS PRN PO PAIN; Start 10/10/19 at 17:15 Ropinirole HCl (Requip) 2 mg QHS PO Last administered on 10/11/19 21:11; Start 10/10/19 at 21:00 Warfarin Sodium (Coumadin) 5 mg 1X WARF ONCE PO Last administered on 10/10/19at 21:57; Start 10/10/19 at 21:00; Stop 10/10/19 at 21:01; Status DC Warfarin Sodium (Coumadin Per Physician) 1 each PRN DAILY PRN MC SEE COMMENTS Last administered on 10/11/19at 13:08; Start 10/10/19 at 20:45 Linezolid (Zyvox) 600 mg BID PO Last administered on 10/12/19 08:18; Start 10/11/19 at 09:00 Cefepime HCl (Maxipime) 1 gm Q8HRS IVP Last administered on 10/12/19 05:33; Start 10/11/19 at 08:00 Warfarin Sodium (Coumadin) 5 mg DAILY16 PO Last administered on 10/11/19at 17:16; Start 10/11/19 at 16:00 Potassium Chloride (Klor-Con) 20 meq BID PO Last administered on 10/12/19at 08:17; Start 10/11/19 at 12:30 Bumetanide (Bumex) 1 mg BID92 IV Last administered on 10/12/19at 08:19; Start 10/11/19 at 14:00 Lactobacillus Rhamnosus (Culturelle) 1 cap BID PO Last administered on 10/12/19at 08:17; Start 10/11/19 at 21:00 Active Scripts Active Aspirin Ec (Aspirin) 81 Mg Tablet.dr 1 Tab PO DAILY Klor-Con M20 (Potassium Chloride) 20 Meq Tablet.er 20 Meq PO DAILY Reported Amiodarone Hcl 400 Mg Tablet 0.5 Tab PO DAILY 30 Days Carvedilol (Carvedilol) 6.25 Mg Tablet 6.25 Mg PO BIDWMEALS Senna Laxative (Sennosides) 8.6 Mg Tablet 1 Tab PO PRN DAILY PRN 30 Days Vitamin D3 (Cholecalciferol (Vitamin D3)) 1,250 Mcg Capsule 1,000 Mcg PO DAILY Clarisse Allergy (Fexofenadine Hcl) 180 Mg Tablet 1 Tab PO DAILY 14 Days Furosemide 40 Mg Tablet 1 Tab PO DAILY Warfarin Sodium 4 Mg Tablet 4 Mg PO DAILY Ropinirole Hcl 1 Mg Tablet 2 Mg PO HS need dose tonight Vitals/I & O Vital Sign - Last 24 Hours 10/11/19 10/11/19 10/11/19 10/11/19 11:00 15:00 17:16 19:00 Temp 97.5 97.5 98.1 97.5 97.5 98.1 Pulse 70 79 79 74 Resp 16 16 20 B/P (MAP) 106/70 (82) 133/92 (106) 133/92 140/86 (104) Pulse Ox 94 95 93 O2 Delivery Room Air Room Air Room Air 10/11/19 10/11/19 10/12/19 10/12/19 19:10 23:00 03:00 07:00 Temp 98.2 98.4 97.7 98.2 98.4 97.7 Pulse 59 68 61 Resp 20 20 18 B/P (MAP) 109/72 (84) 132/85 (101) 133/80 (97) Pulse Ox 93 95 93 O2 Delivery Room Air Room Air Room Air Room Air 10/12/19 10/12/19 10/12/19 08:18 08:18 10:43 Temp 97.8 97.8 Pulse 61 61 68 Resp 18 B/P (MAP) 133/80 133/80 113/81 (92) Pulse Ox 96 O2 Delivery Room Air Intake and Output 10/11/19 10/11/19 10/12/19 15:00 23:00 07:00 Intake Total 740 ml 300 ml 780 ml Output Total 1500 ml Balance 740 ml -1200 ml 780 ml Justicifation of Admission Dx: Justifications for Admission: Justification of Admission Dx: Yes Cellulitis: Cellulitis DEBBIE KNOX MD Oct 12, 2019 10:53
[2019-10-12] MEDS ORDERED: POTASSIUM CHLORIDE 20 MEQ TABLET.ER. PO ONE (11:00)
[2019-10-12 15:00] VITALS: BP 128/74
[2019-10-12] MEDS: WARFARIN 5 MG TABLET. PO SCH (17:17)
[2019-10-12 19:00] VITALS: BP 140/77
[2019-10-12] MEDS: rOPINIRole 1 MG TABLET. PO SCH (21:33)
[2019-10-12 23:00] VITALS: BP 137/81
[2019-10-13 03:00] VITALS: BP 139/76
[2019-10-13 04:10] LABS: CALCIUM 8.1 mg/dL (8.5-10.1); GFR 72.5; POTASSIUM 4.1 mmol/L (3.5-5.1)
[2019-10-13] MEDS: CEFEPIME HCL IV Push 1 GM VIAL. IVP SCH (05:46)
[2019-10-13 07:00] VITALS: BP 126/85
[2019-10-13] MEDS: ASPIRIN CHEWABLE 81 MG TABLET. PO SCH (08:03)
[2019-10-13] MEDS: LACTOBACILLUS RHAMNOSUS GG 1 CAPSULE. PO SCH (08:03)
[2019-10-13] MEDS: AMIODARONE HCL 200 MG TABLET. PO SCH (08:03)
[2019-10-13] MEDS: POTASSIUM CHLORIDE 20 MEQ TABLET.ER. PO SCH (08:04)
[2019-10-13] MEDS: LINEZOLID 600 MG TABLET PO SCH (08:04)
[2019-10-13] MEDS: CARVEDILOL 6.25 MG TABLET. PO SCH (08:04)
[2019-10-13] MEDS: BUMETANIDE 1 MG/4 ML VIAL. IV SCH (08:07)
--- NOTE | 2019-10-13 09:30 | NUR ---
Wound Care Wound Type/Assessment: Consult to eval and treat RLE cellulitis and venous ulcer. No other wounds noted on head to toe inspection. See detailed assessment. Treatment Recommendations/Plan: Apply medihoney, xeroform, and ABD secured with kerlix. Change every 3 days Education provided: Turn often to prevent further skin breakdown. Offloading surface/device: NA Follow up 10/22/19
--- NOTE | 2019-10-13 10:14 | PDOC ---
Infectious Disease Note Subjective Subjective Ok but had some leg discomfort and burning in the night No F/c/s/N/v/SPA/Rash and gets to bathroom ok Vital Sign Vital Signs Vital Signs Date Time Temp Pulse Resp B/P (MAP) Pulse Ox O2 Delivery O2 Flow Rate FiO2 10/13/19 08:04 58 126/85 10/13/19 07:00 97.8 19 94 Room Air 97.8 Physical Exam PHYSICAL EXAM CONSTITUTIONAL: He is very pleasant and cooperative. He is in no acute distress. HEENT: Pupils are equal and reactive. Normal conjunctivae. Oral cavity, pharynx clear. NECK: Supple. Good range of motion. LUNGS: Clear to auscultation bilaterally. HEART: S1 and S2. ABDOMEN: Morbidly obese, soft, no guarding or rebound. EXTREMITIES: Without clubbing or cyanosis. He has bilateral lymphedema changes, right greater than left. His right lower extremity has erythema from the upper tibial area down to the top of the ankle stable/ trace warmth. He has a wound that is superficial on the anterior aspect, approximately 2-3 cm x 1 cm, it is clean, no purulence, has no erythema tracking up to his groin. SKIN: Warm to touch. NEUROLOGIC: Nonfocal. PSYCHIATRIC: Affect is pleasant rt leg wound and leg is looking much better Labs Lab Laboratory Tests Test 10/13/19 03:30 Prothrombin Time 24.0 SEC (11.7-14.0) Prothromb Time International Ratio 2.2 (0.8-1.1) Sodium Level 138 mmol/L (136-145) Potassium Level 4.1 mmol/L (3.5-5.1) Chloride Level 104 mmol/L (98-107) Carbon Dioxide Level 28 mmol/L (21-32) Anion Gap 6 (6-14) Blood Urea Nitrogen 19 mg/dL (8-26) Creatinine 1.0 mg/dL (0.7-1.3) Estimated GFR (Cockcroft-Gault) 72.5 Glucose Level 96 mg/dL (70-99) Calcium Level 8.1 mg/dL (8.5-10.1) Micro Microbiology 10/10/19 Blood Culture - Preliminary, Resulted NO GROWTH AFTER 2 DAYS Objective Assessment 1. Cellulitis, right lower extremity from the scratch of a metal bracket, he states he is up-to-date on his tetanus. 2. SULFA ALLERGY. 3. Atrial fibrillation. 4. Lymphedema. 5. Cat exposure. Plan Plan of Care po Zyvox and po augmentin F/u labs and cults Elevation KIM ALVARADO MD Oct 13, 2019 10:14
[2019-10-13] MEDS ORDERED: AMOX1TAB11 PO (10:27)
[2019-10-13] MEDS ORDERED: WARF5TAB9 PO (10:27)
[2019-10-13] MEDS ORDERED: AMOX1TAB61 PO (10:27)
--- NOTE | 2019-10-13 10:28 | DISCH ---
DISCHARGE INSTRUCTIONS Condition on Discharge Condition on Discharge: Stable Activity After Discharge Activity Instructions for Disc: No restrictions Diet after Discharge Diet after Discharge: Cardiac, Regular Diet Texture: Regular Contacting the DRRoyal after DC Call your doctor for: If your condition worsens Follow-Up Follow up with: dr. knox later this weekl Treatment/Equipment after DC Adaptive Equipment Issued: None Warfarin Follow-Up Warfarin Follow UP: 10/14 at home DEBBIE KNOX MD Oct 13, 2019 10:28
--- NOTE | 2019-10-13 10:30 | PDOC ---
PROGRESS NOTES Date of Service DATE: 10/13/19 TIME: 10:28 Subjective Subjective feels better. discussed with dr. burke rios. leg is better. lab reviewed. inr 2.2 Objective Objective Vital Signs Date Time Temp Pulse Resp B/P (MAP) Pulse Ox O2 Delivery O2 Flow Rate FiO2 10/13/19 08:04 58 126/85 10/13/19 07:00 97.8 19 94 Room Air 97.8 Intake and Output 10/13/19 07:00 Intake Total 1620 ml Output Total 800 ml Balance 820 ml Intake Oral 1620 ml Output Urine Total 800 ml # Voids 1 # Bowel Movements 1 Physical Exam Abdomen: Soft Heart: Regular rate, Normal S1, Normal S2 Extremities: Other (2 plus edema right foot) General: Alert HEENT: Atraumatic Lungs: Clear to auscultation Neuro: Normal speech Psych/Mental Status: Mental status NL Skin: Other (redness right leg better) Assessment Assessment 1. Cellulitis, right leg.improved 2. Abrasion, right pretibial area. 3. Chronic venous insufficiency of the legs. 4. Paroxysmal atrial fibrillation, on Coumadin. 5. Factor V Leiden mutation, on Coumadin. 6. Coronary artery disease with previous angioplasties and stents. 7. Hypertension. 8. Obstructive sleep apnea. 9. History of a right total knee arthroplasty. Plan Plan of Care switch to agmentin for 7 days elevate leg switch back to furosemide and kcl dismiss today Comment Review of Relevant I have reviewed the following items jackeline (where applicable) has been applied. Labs Laboratory Tests Test 10/12/19 05:13 10/13/19 03:30 Prothrombin Time 21.8 SEC (11.7-14.0) 24.0 SEC (11.7-14.0) Prothromb Time International Ratio 1.9 (0.8-1.1) 2.2 (0.8-1.1) Sodium Level 141 mmol/L (136-145) 138 mmol/L (136-145) Potassium Level 3.9 mmol/L (3.5-5.1) 4.1 mmol/L (3.5-5.1) Chloride Level 105 mmol/L (98-107) 104 mmol/L (98-107) Carbon Dioxide Level 28 mmol/L (21-32) 28 mmol/L (21-32) Anion Gap 8 (6-14) 6 (6-14) Blood Urea Nitrogen 21 mg/dL (8-26) 19 mg/dL (8-26) Creatinine 1.0 mg/dL (0.7-1.3) 1.0 mg/dL (0.7-1.3) Estimated GFR (Cockcroft-Gault) 72.5 72.5 Glucose Level 103 mg/dL (70-99) 96 mg/dL (70-99) Calcium Level 8.7 mg/dL (8.5-10.1) 8.1 mg/dL (8.5-10.1) Magnesium Level 2.1 mg/dL (1.8-2.4) Laboratory Tests Test 10/13/19 03:30 Prothrombin Time 24.0 SEC (11.7-14.0) Prothromb Time International Ratio 2.2 (0.8-1.1) Sodium Level 138 mmol/L (136-145) Potassium Level 4.1 mmol/L (3.5-5.1) Chloride Level 104 mmol/L (98-107) Carbon Dioxide Level 28 mmol/L (21-32) Anion Gap 6 (6-14) Blood Urea Nitrogen 19 mg/dL (8-26) Creatinine 1.0 mg/dL (0.7-1.3) Estimated GFR (Cockcroft-Gault) 72.5 Glucose Level 96 mg/dL (70-99) Calcium Level 8.1 mg/dL (8.5-10.1) Microbiology 10/10/19 Blood Culture - Preliminary, Resulted NO GROWTH AFTER 2 DAYS Medications Current Medications Cefazolin Sodium (Ancef) 1 gm Q8HRS IVP Last administered on 10/11/19at 06:25; Start 10/10/19 at 22:00; Stop 10/11/19 at 07:51; Status DC Amiodarone HCl (Cordarone) 400 mg DAILY PO Last administered on 10/13/19at 08:03; Start 10/11/19 at 09:00 Aspirin (Aspirin Chewable) 81 mg DAILYWBKFT PO Last administered on 10/13/19at 08:03; Start 10/11/19 at 08:00 Carvedilol (Coreg) 6.25 mg BIDWMEALS PO Last administered on 10/13/19at 08:04; Start 10/10/19 at 17:00 Furosemide (Lasix) 40 mg DAILY IVP Last administered on 10/11/19at 09:08; Start 10/11/19 at 09:00; Stop 10/11/19 at 12:14; Status DC Acetaminophen (Tylenol) 650 mg PRN Q6HRS PRN PO PAIN; Start 10/10/19 at 17:15 Ropinirole HCl (Requip) 2 mg QHS PO Last administered on 10/12/19at 21:33; Start 10/10/19 at 21:00 Warfarin Sodium (Coumadin) 5 mg 1X WARF ONCE PO Last administered on 10/10/19at 21:57; Start 10/10/19 at 21:00; Stop 10/10/19 at 21:01; Status DC Warfarin Sodium (Coumadin Per Physician) 1 each PRN DAILY PRN MC SEE COMMENTS Last administered on 10/12/19at 11:43; Start 10/10/19 at 20:45 Linezolid (Zyvox) 600 mg BID PO Last administered on 10/13/19at 08:04; Start 10/11/19 at 09:00; Stop 10/13/19 at 10:22; Status DC Cefepime HCl (Maxipime) 1 gm Q8HRS IVP Last administered on 10/13/19at 05:46; Start 10/11/19 at 08:00; Stop 10/13/19 at 10:22; Status DC Warfarin Sodium (Coumadin) 5 mg DAILY16 PO Last administered on 10/12/19at 17:17; Start 10/11/19 at 16:00 Potassium Chloride (Klor-Con) 20 meq BID PO Last administered on 10/13/19at 08:0 4; Start 10/11/19 at 12:30; Stop 10/13/19 at 10:22; Status DC Bumetanide (Bumex) 1 mg BID92 IV Last administered on 10/13/19at 08:07; Start 10/11/19 at 14:00; Stop 10/13/19 at 10:22; Status DC Lactobacillus Rhamnosus (Culturelle) 1 cap BID PO Last administered on 10/13/19at 08:03; Start 10/11/19 at 21:00 Potassium Chloride (Klor-Con) 20 meq 1X ONCE PO Last administered on 10/12/19at 13:29; Start 10/12/19 at 11:00; Stop 10/12/19 at 11:01; Status DC Amoxicillin/ Clavulanate Potassium (Augmentin 875/ 125mg) 1 tab BID PO ; Start 10/13/19 at 21:00 Potassium Chloride (Klor-Con) 20 meq DAILY05 PO ; Start 10/14/19 at 05:00; Status UNV Furosemide (Lasix) 40 mg DAILY PO ; Start 10/14/19 at 09:00; Status UNV Active Scripts Active Augmentin 875-125 Tablet (Amoxicillin/Potassium Clav) 1 Each Tablet 1 Tab PO BID 7 Days Jantoven (Warfarin Sodium) 5 Mg Tablet 5 Mg PO DAILY16 Amox Tr-K Clv 875-125 Mg Tab (Amoxicillin/Potassium Clav) 1 Each Tablet 1 Tab PO BID Aspirin Ec (Aspirin) 81 Mg Tablet.dr 1 Tab PO DAILY Klor-Con M20 (Potassium Chloride) 20 Meq Tablet.er 20 Meq PO DAILY Reported Amiodarone Hcl 400 Mg Tablet 0.5 Tab PO DAILY 30 Days Carvedilol (Carvedilol) 6.25 Mg Tablet 6.25 Mg PO BIDWMEALS Furosemide 40 Mg Tablet 1 Tab PO DAILY Ropinirole Hcl 1 Mg Tablet 2 Mg PO HS need dose tonight Vitals/I & O Vital Sign - Last 24 Hours 10/12/19 10/12/19 10/12/19 10/12/19 10:43 15:00 17:16 19:00 Temp 97.8 97.8 98.8 97.8 97.8 98.8 Pulse 68 64 64 62 Resp 18 18 20 B/P (MAP) 113/81 (92) 128/74 (92) 128/74 140/77 (98) Pulse Ox 96 96 91 O2 Delivery Room Air Room Air Room Air 10/12/19 10/12/19 10/13/19 10/13/19 20:00 23:00 03:00 07:00 Temp 98.5 97.9 97.8 98.5 97.9 97.8 Pulse 63 59 58 Resp 20 20 19 B/P (MAP) 137/81 (99) 139/76 (97) 126/85 (99) Pulse Ox 92 94 94 O2 Delivery Room Air Room Air Room Air Room Air 10/13/19 10/13/19 08:03 08:04 Pulse 58 58 B/P (MAP) 126/85 126/85 Intake and Output 10/12/19 10/12/19 10/13/19 15:00 23:00 07:00 Intake Total 600 ml 720 ml 300 ml Output Total 200 ml 600 ml Balance 600 ml 520 ml -300 ml DEBBIE KNOX MD Oct 13, 2019 10:30
--- NOTE | 2019-10-13 10:35 | PDOC ---
Provider Note Provider Note discharge summary dictated # [id number] DEBBIE KNOX MD Oct 13, 2019 10:35
[2019-10-13 10:45] VITALS: BP 108/80
--- NOTE | 2019-10-13 12:00 | NUR ---
pt discharged home with . meds and follow up reviewed. pt given wound care instructions. IV removed cath intact. pt stable upon dc
--- NOTE | 2019-10-13 12:03 | NUR ---
SW following. Spoke with RN and reviewed chart. Spoke with Dr. Palmer. Pt to discharge home today self-care. Pt on room air, oral medications and a cardiac diet. No further SW needs at this time.
--- NOTE | 2019-10-13 15:05 | DS ---
DATE OF DISCHARGE: 10/13/2019 CONSULTANTS: Dr. Sosa and Dr. Eran Bender. FINAL DIAGNOSES: 1. Cellulitis, right leg. 2. Chronic venous insufficiency of the legs. 3. Abrasion of the right pretibial area with a wound. 4. Chronic venous insufficiency of the legs. 5. Paroxysmal atrial fibrillation, on Coumadin. 6. Factor V Leiden mutation, on Coumadin. 7. Coronary artery disease with previous coronary angioplasties and stents. 8. Hypertension. 9. Obstructive sleep apnea. 10. Morbid obesity. 11. History of a right total knee arthroplasty. HOSPITAL COURSE: The patient is a 79-year-old white male with a history of paroxysmal atrial fibrillation, on Coumadin with a factor V Leiden mutation with history of coronary artery disease and hypertension, admitted to [facility] from my office on 10/10/2019 with cellulitis in the right leg. He apparently was moving his wheelchair brackets ____ to his right leg and he had a pretibial wound. He developed some redness and some fever and chills involving the right pretibial area. He has 2+ edema in the right leg and subsequently admitted to the hospital ____. He was treated with IV Bumex and had a good diuresis. He was treated with IV antibiotics initially, cefazolin switched to cefepime and Zyvox with improvement in his cellulitis in the right leg. His INR eventually improved to 2.2 today. I discussed the case with the Infectious Disease doctor, Dr. Eran Bender, who switched him to Augmentin 875 mg b.i.d. for 7 days. He does not think the Zyvox is necessary. He was told to elevate the leg and treat the wound with soap and water once or twice a day, keep the wound clean, elevate the legs, not to sit for long periods of time except for just eating and toileting and otherwise his legs should be elevated or walking. He will be dismissed to home today on, 10/12, was told to make an appointment with Dr. Palmer in the office on 10/14. Follow his protime and INR daily at home, perhaps once daily, next time we will check it and will be dismissed on Augmentin 875 mg 1 b.i.d. for 7 days, furosemide 40 mg p.o. daily, amiodarone 400 mg every day, aspirin 81 mg every day, carvedilol 6.25 mg b.i.d., potassium chloride 20 mEq every day, Requip 2 mg at bedtime, Coumadin 5 mg every day. He was told to elevate his legs. He can make an appointment to see Dr. Palmer in the office in 2 days to check his protime and INR in 2 days also. DEBBIE PALMER MD DR: VEDA/ganga JOB#: [id number] / [id number]
[2019-10-13] MEDS ORDERED: AMOXICILLIN/K CLAV 875/125MG TABLET. PO SCH (21:00)
[2019-10-14] MEDS ORDERED: POTASSIUM CHLORIDE 20 MEQ TABLET.ER. PO SCH (05:00)
[2019-10-14] MEDS ORDERED: FUROSEMIDE 40 MG TABLET. PO SCH (09:00)
== END 2019-10-13 12:00 | disposition home or self-care (01) | DRG 602 ==
LOC: 5 NORTH 15:01
PROVIDERS: ADMIT Internal Medicine; ATTEND Internal Medicine
DX: L03.115 Cellulitis of right lower limb (principal); E43 Unspecified severe protein-calorie malnutrition; I50.32 Chronic diastolic (congestive) heart failure; D68.51 Activated protein C resistance; Z68.41 Body mass index [BMI] 40.0-44.9, adult; E66.01 Morbid (severe) obesity due to excess calories; E78.5 Hyperlipidemia, unspecified; G47.33 Obstructive sleep apnea (adult) (pediatric); I11.0 Hypertensive heart disease with heart failure; I25.10 Atherosclerotic heart disease of native coronary artery without angina pectoris; I48.0 Paroxysmal atrial fibrillation; I87.2 Venous insufficiency (chronic) (peripheral); I89.0 Lymphedema, not elsewhere classified; K59.00 Constipation, unspecified; N40.0 Benign prostatic hyperplasia without lower urinary tract symptoms; Z79.01 Long term (current) use of anticoagulants; Z79.82 Long term (current) use of aspirin; Z79.899 Other long term (current) drug therapy; Z86.718 Personal history of other venous thrombosis and embolism; Z88.2 Allergy status to sulfonamides; Z95.1 Presence of aortocoronary bypass graft; Z95.5 Presence of coronary angioplasty implant and graft; Z95.810 Presence of automatic (implantable) cardiac defibrillator; Z96.651 Presence of right artificial knee joint; K21.0 Gastro-esophageal reflux disease with esophagitis; M19.90 Unspecified osteoarthritis, unspecified site; Z88.8 Allergy status to other drugs, medicaments and biological substances; S90.811A Abrasion, right foot, initial encounter; X58.XXXA Exposure to other specified factors, initial encounter; Y93.89 Activity, other specified; Y92.89 Other specified places as the place of occurrence of the external cause; Y99.8 Other external cause status
CPT/HCPCS: 36415; 71046; 80048; 80053; 83735; 85007; 85025; 85610; 87040; 93005; 93971; J0690; J0692; J1940; J3490; G0378

== ENCOUNTER → 2021-01-05 | Outpatient (CLI) | payer BC ==
[~2021-01-05] MED LIST changes: +AMIO400T5 PO; +AMLO-186 PO; -AMLO5TAB10 PO; +AMOX1TAB11 PO; +AMOX1TAB61 PO; +CARV6.2511 PO; +CHOL500050 PO; -DRON400T PO; +DRON400T6 PO; +FEXO180T81 PO; -FLUT100D INH; +FLUT100D2 INH; +FURO40TA4 PO; +POTA-121 PO; +SENN8.6T11 PO; +WARF5TAB9 PO
--- NOTE | 2021-01-05 10:54 | KCIC ---
EXAM: Chest, 2 views. HISTORY: Amiodarone monitoring. COMPARISON: 10/11/2019 FINDINGS: 2 views of the chest are obtained. There is stable cardiomegaly and there are stable promin ent central pulmonary vessels. There is stable lingular and left lower lobe pleural parenchymal scarr ing. There is stable mild elevation of the right hemidiaphragm. There is no consolidation, pleural ef fusion or pneumothorax. There is a cardiac pacemaker defibrillator unchanged in appearance. There is evidence of CABG. IMPRESSION: 1. Stable suspected left lower lobe pleural parenchymal scarring. 2. Stable cardiomegaly and prominent central pulmonary vessels. Electronically signed by: Denia Howell MD (01/05/2021 10:51 AM) [id number]
== END ==
LOC: KCIC 10:19
PROVIDERS: ATTEND Internal Medicine Cardiovascular Disease
DX: I51.7 Cardiomegaly (principal); I10 Essential (primary) hypertension; I25.10 Atherosclerotic heart disease of native coronary artery without angina pectoris; I25.810 Atherosclerosis of coronary artery bypass graft(s) without angina pectoris; I49.3 Ventricular premature depolarization; I48.19 Other persistent atrial fibrillation; I73.9 Peripheral vascular disease, unspecified
CPT/HCPCS: 71046